=== PATIENT | female | born 1955 | race African-American/Black ===

== ENCOUNTER → 2017-06-28 | Outpatient (CLI) | payer MEDICAID ==
[~2017-06-28] VITALS: Ht 157.5 cm; Wt 60.3 kg
[~2017-06-28] MED LIST: ACET-1304 PO; ADENOSINE 51 MG in GIVE UN-DILUTED 0 ML IV ONE; ADENOSINE 90 MG/30 ML INJ IV ONE; AMOX500T3 PO; ANAG0.5C PO; ASPI81CH43 GT; ATOR40TA52 PO; BENA20TA14 PO; CHOL200031 PO; DOXA4TAB40 PO; HYDR500C PO; METF-370 PO; RANI150C11 PO
== END | disposition home or self-care (01) ==
LOC: Rad HDHVI 12:52
PROVIDERS: ATTEND Internal Medicine Cardiovascular Disease
DX: I20.9 Angina pectoris, unspecified (principal); I34.0 Nonrheumatic mitral (valve) insufficiency; R07.9 Chest pain, unspecified; R06.02 Shortness of breath; R42 Dizziness and giddiness
CPT/HCPCS: 78452; 93005; 93306; 96374; 96375; A9500

== ENCOUNTER → 2017-07-24 | Outpatient (CLI) | payer MEDICAID ==
[~2017-07-24] MED LIST changes: -ADENOSINE 51 MG in GIVE UN-DILUTED 0 ML IV ONE; -ADENOSINE 90 MG/30 ML INJ IV ONE
[2017-07-24 08:30] VITALS: BP 102/72
[2017-07-24 09:15] VITALS: BP 112/72
[2017-07-24 12:08] LABS: Eosinophils # (auto) 0.2 uL; Hemoglobin 12.9 g/dL (12.2-16.2); Mean Corpuscular Volume 97.8 fL (80.0-100.0); Neutrophils # (auto) 2.9 uL; Red Cell Distribution Width 15.9 % (11.8-14.3)
[2017-07-24 12:12] LABS: Basophils # (auto) 0 uL; Hematocrit 38.8 % (36.0-46.0); Lymphocytes # (auto) 1.2 uL; Mean Corpuscular Hemoglobin 32.5 pg (28.0-32.0); Mean Corpuscular Hgb Conc. 33.2 g/dL (32.0-36.0); Monocytes # (auto) 0.4 uL; Monocytes % (auto) 7.7 % (0.0-12.0); Neutrophils % (auto) 61.3 % (37.0-80.0); Nucleated Red Blood Cells % 0.2 %; Platelet Count (auto) 485 10^3/uL (140-450); Red Blood Cells 3.97 10^6/uL (4.0-5.20); White Blood Cell 4.7 10^3/uL (4.4-10.8)
[2017-07-24 12:22] LABS: INR 0.92 (0.9-1.15)
[2017-07-24 12:35] LABS: BUN/Creatinine Ratio 28.9; Calcium 8.9 mg/dL (8.5-10.1); Potassium 3.5 mmol/L (3.5-5.1)
== END | disposition home or self-care (01) ==
LOC: Rad HDHVI 08:19
PROVIDERS: ATTEND Internal Medicine Cardiovascular Disease
DX: Z01.818 Encounter for other preprocedural examination (principal); D64.9 Anemia, unspecified; I10 Essential (primary) hypertension; R79.1 Abnormal coagulation profile
CPT/HCPCS: 36415; 71046; 80048; 82962; 85025; 85610; 85730; 93005; G0463

== ENCOUNTER 2017-07-27 09:32 | Day surgery (SDC) | payer MEDICAID ==
[2017-07-27] MEDS ORDERED: IOHEXOL 350 MG/ML 100ML IJ ONE (12:31)
[2017-07-27] MEDS ORDERED: LIDOCAINE 2%HCL (LOCAL ANESTH.) INJ 20ML MDV ONE ×2 (12:32→12:40)
[2017-07-27] MEDS ORDERED: fentaNYL CITRATE 100 MCG/2 ML VL ONE (12:35)
[2017-07-27] MEDS ORDERED: ANGIOMAX 250 MG VIAL IV ONE (12:35)
[2017-07-27] MEDS ORDERED: MIDAZOLAM HCL 1MG/1ML-2 ML VIAL ONE (12:35)
[2017-07-27] MEDS ORDERED: SODIUM CHL 0.9% 0 ML ONE (12:35)
[2017-09-18] MEDS ORDERED: BENA20TA14 PO (19:03)
[2017-09-18] MEDS ORDERED: METF-370 PO (19:03)
[2017-09-18] MEDS ORDERED: ANAG0.5C PO (19:03)
[2017-09-18] MEDS ORDERED: HYDR500C PO (19:03)
[2017-09-18] MEDS ORDERED: ACET-1304 PO (19:03)
[2017-09-18] MEDS ORDERED: ATOR40TA52 PO (19:03)
[2017-09-18] MEDS ORDERED: RANI150C11 PO (19:03)
[2017-09-18] MEDS ORDERED: ASPI81CH43 GT (19:03)
[2017-09-18] MEDS ORDERED: CHOL200031 PO (19:03)
[2017-09-18] MEDS ORDERED: AMOX500T3 PO (19:03)
[2017-09-18] MEDS ORDERED: DOXA4TAB40 PO (19:03)
[2017-09-20] MEDS ORDERED: HYDR-4683 PO (13:56)
== END 2017-07-27 15:40 | disposition home or self-care (01) ==
LOC: CATH 09:32
PROVIDERS: ATTEND Internal Medicine Cardiovascular Disease
DX: I11.0 Hypertensive heart disease with heart failure (principal); I10 Essential (primary) hypertension
CPT/HCPCS: 93460; C1760; C1894; J1644; J3010; J7030; Q9967; 99152; J2250

== ENCOUNTER 2018-01-05 12:08 | Inpatient (IN) | payer MEDICAID ==
[~2018-01-05] VITALS: Ht 165.1 cm; Wt 57.0 kg
[~2018-01-05 12:08] MED LIST changes: +HYDR-4683 PO
[2018-01-05 13:49] LABS: Basophils # (auto) 0 uL; Eosinophils # (auto) 0.1 uL; Lymphocytes # (auto) 1.4 uL; Mean Corpuscular Volume 100.8 fL (80.0-100.0); Monocytes # (auto) 0.3 uL; Red Cell Distribution Width 16.9 % (11.8-14.3); White Blood Cell 3.9 10^3/uL (4.4-10.8)
[2018-01-05 13:51] LABS: Basophils % (auto) 0.5 % (0.0-2.0); Eosinophils % (auto) 3.2 % (0.0-7.0); Hematocrit 39.2 % (36.0-46.0); Hemoglobin 12.8 g/dL (12.2-16.2); Lymphocytes % (auto) 35.7 % (10.0-50.0); Mean Corpuscular Hemoglobin 32.8 pg (28.0-32.0); Mean Corpuscular Hgb Conc. 32.6 g/dL (32.0-36.0); Monocytes % (auto) 8.8 % (0.0-12.0); Neutrophils % (auto) 51.8 % (37.0-80.0); Platelet Count (auto) 430 10^3/uL (140-450); Red Blood Cells 3.89 10^6/uL (4.0-5.20)
[2018-01-05 14:10] LABS: Albumin 4.2 g/dL (3.4-5.0); Anion Gap 7 (5-15); Blood Urea Nitrogen 19 mg/dL (7-18); Calcium 8.9 mg/dL (8.5-10.1); Carbon Dioxide 26 mmol/L (21-32); Chloride 110 mmol/L (98-107); Glucose 82 mg/dL (74-106); Magnesium 2.3 mg/dL (1.6-2.6); Potassium 3.3 mmol/L (3.5-5.1); Sodium 143 mmol/L (136-145)
[2018-01-05 14:12] LABS: Alanine Aminotransferase 21 U/L (13-56); Aspartate Aminotransferase 22 U/L (15-37); BUN/Creatinine Ratio 22.6; GFR African American 89 mL/min; GFR Non-African American 74 mL/min
[2018-01-05 14:17] LABS: Alkaline Phosphatase 57 U/L (45-117); Bilirubin, Total 0.5 mg/dL (0.2-1.0); Total Protein 7.8 g/dL (6.4-8.2)
[2018-01-05 14:23] LABS: Urine Bacteria NONE SEEN /hpf (None Seen); Urine Blood Negative /uL (Negative); Urine Mucus FEW (None Seen); Urine Specific Gravity 1.027 (1.001-1.035); Urine WBC 2 /hpf (0 - 5)
[2018-01-05] MEDS ORDERED: ALBUTEROL SULF 2.5 MG/0.5ML(0.5%) NEB SOLN NEB PRN (17:00)
[2018-01-05] MEDS ORDERED: LORazepam 0.5 MG TAB PO PRN (17:00)
[2018-01-05] MEDS ORDERED: LACTULOSE 20Gm/30ML SOLN PO PRN (17:00)
[2018-01-05] MEDS ORDERED: NITROGLYCERIN 0.4 MG SL TAB SL PRN (17:00)
[2018-01-05] MEDS ORDERED: HYDROcodone-ACET 5/325MG TAB PO PRN (17:00)
[2018-01-05] MEDS ORDERED: MORPHINE SULF INJ 2 MG/ML SYRINGE 1ML IV PRN ×2 (17:00)
[2018-01-05] MEDS ORDERED: ACETAMINOPHEN 500 MG TAB PO PRN (17:00)
[2018-01-05] MEDS ORDERED: NITROFURANTOIN (MONO) 100 mg CAP PO ONE (17:00)
[2018-01-05] MEDS ORDERED: PROMETHAZINE HCL 25 MG/ML 1ML IV PRN (17:00)
[2018-01-05] MEDS ORDERED: GABA-339 PO ×2 (17:30→22:55)
[2018-01-05] MEDS ORDERED: GABA600T PO (17:30)
[2018-01-05] MEDS ORDERED: METOPROLOL TARTRATE 25 MG TAB PO ONE (17:30)
[2018-01-05] MEDS ORDERED: CHOL200010 PO (17:34)
[2018-01-05] MEDS ORDERED: ASPI-231 PO (17:34)
[2018-01-05] MEDS ORDERED: [UNRECOGNIZED DRUG - CODE] PO (17:34)
[2018-01-05] MEDS ORDERED: HYDR500C PO (17:34)
[2018-01-05] MEDS ORDERED: RANI1TAB6 PO (17:34)
[2018-01-05] MEDS ORDERED: DOXA4TAB40 PO (17:34)
[2018-01-05] MEDS ORDERED: BENA40TA7 PO (17:34)
[2018-01-05] MEDS ORDERED: VALA500T33 PO (17:34)
[2018-01-05] MEDS ORDERED: ANAG0.5C6 PO (17:37)
[2018-01-05] MEDS ORDERED: HYDR12.56 PO (17:37)
[2018-01-05] MEDS ORDERED: ATOR40TA52 PO (17:37)
[2018-01-05] MEDS ORDERED: TRAM50TA2 PO (17:37)
[2018-01-05] MEDS ORDERED: METH-532 PO (17:37)
[2018-01-05 17:56] LABS: Alcohol, Urine < 3.0 mg/dL (0-5); Amphetamine Screen, Urine NEGATIVE (NEGATIVE); Barbiturate Scree,Urine NEGATIVE (NEGATIVE); Benzodiazephine Screen, Urine NEGATIVE (NEGATIVE); Cannabinoid Screen, Urine POSITIVE (NEGATIVE); Cocaine Screen, Urine NEGATIVE (NEGATIVE); Opiate Scree,Urine NEGATIVE (NEGATIVE); Phencyclidine Screen, Urine NEGATIVE (NEGATIVE)
[2018-01-05] MEDS: ALBUTEROL SULF 2.5 MG/0.5ML(0.5%) NEB SOLN NEB SCH (18:10)
[2018-01-05] MEDS: IPRATROPIUM BROM 0.5 MG/2.5ML INH SOL NEB SCH (18:10)
[2018-01-05] MEDS: SODIUM CHLORIDE 0.9% 1,000 ML IV SCH (18:35)
[2018-01-05] MEDS: cefTRIAXone 1GM/10ml IVPUSH 10 ML IV SCH (18:35)
[2018-01-05 20:28] VITALS: BP 141/72
[2018-01-05] MEDS: DOXAZOSIN MESYL 2 MG TAB PO SCH (21:18)
[2018-01-05] MEDS: [UNRECOGNIZED DRUG - OTHER] PO SCH (21:18)
[2018-01-05] MEDS: ATORVASTATIN 20 MG TAB PO SCH (21:19)
[2018-01-05] MEDS: TEMAZEPAM 15 MG CAP PO PRN (21:25)
[2018-01-05 21:52] VITALS: BP 141/72
[2018-01-05] MEDS ORDERED: BECL80AE11 IN (22:55)
[2018-01-05] MEDS ORDERED: ALBUAER3 IN (22:55)
[2018-01-06] MEDS: ALBUTEROL SULF 2.5 MG/0.5ML(0.5%) NEB SOLN NEB SCH ×5 (00:23→22:54)
[2018-01-06] MEDS: IPRATROPIUM BROM 0.5 MG/2.5ML INH SOL NEB SCH ×5 (00:23→22:54)
[2018-01-06 02:27] VITALS: BP 141/72
[2018-01-06 05:36] VITALS: BP 119/69
[2018-01-06 06:06] LABS: Basophils # (auto) 0 uL; Basophils % (auto) 1.5 % (0.0-2.0); Eosinophils # (auto) 0.3 uL; Eosinophils % (auto) 8.2 % (0.0-7.0); Hematocrit 34.2 % (36.0-46.0); Hemoglobin 11.4 g/dL (12.2-16.2); Lymphocytes # (auto) 1.2 uL; Lymphocytes % (auto) 35.7 % (10.0-50.0); Mean Corpuscular Hemoglobin 33.5 pg (28.0-32.0); Mean Corpuscular Hgb Conc. 33.2 g/dL (32.0-36.0); Mean Corpuscular Volume 100.7 fL (80.0-100.0); Monocytes # (auto) 0.4 uL; Monocytes % (auto) 11.5 % (0.0-12.0); Neutrophils # (auto) 1.4 uL; Neutrophils % (auto) 43.1 % (37.0-80.0); Nucleated Red Blood Cells % 0.1 %; Platelet Count (auto) 357 10^3/uL (140-450); Red Cell Distribution Width 16.5 % (11.8-14.3); White Blood Cell 3.3 10^3/uL (4.4-10.8)
[2018-01-06 06:25] LABS: Albumin 3.3 g/dL (3.4-5.0); Bilirubin, Total 0.4 mg/dL (0.2-1.0); Calcium 8.6 mg/dL (8.5-10.1); Potassium 3.6 mmol/L (3.5-5.1); Total Protein 6.3 g/dL (6.4-8.2)
[2018-01-06] MEDS: SODIUM CHLORIDE 0.9% 1,000 ML IV SCH ×2 (06:50→21:30)
[2018-01-06 09:07] VITALS: BP 128/78
[2018-01-06] MEDS: PANTOPRAZOLE 40 MG TAB PO SCH (09:56)
[2018-01-06] MEDS: ASPirin 81 mg TAB PO SCH (09:56)
[2018-01-06] MEDS: METOPROLOL TARTRATE 25 MG TAB PO SCH ×3 (09:57→21:32)
[2018-01-06] MEDS: ENOXAPARIN SOD 40 MG/0.4 ML SYRINGE SC SCH (09:58)
[2018-01-06] MEDS: BENAZEPRIL HCL 10 MG TAB PO SCH (09:58)
[2018-01-06] MEDS: [UNRECOGNIZED DRUG - OTHER] PO SCH ×2 (10:00→21:29)
[2018-01-06] MEDS ORDERED: PATIENTS OWN MEDICATION (Benazepril Hcl 20 MG) PO SCH (10:00)
[2018-01-06] MEDS: NITROGLYCERIN 0.2MG/HR TOPICAL PATCH TD SCH (12:34)
[2018-01-06 13:26] VITALS: BP 143/77
[2018-01-06 17:00] VITALS: BP 125/69
[2018-01-06] MEDS: cefTRIAXone 1GM/10ml IVPUSH 10 ML IV SCH (17:50)
[2018-01-06] MEDS: ATORVASTATIN 20 MG TAB PO SCH (21:27)
[2018-01-06] MEDS: TEMAZEPAM 15 MG CAP PO PRN (21:28)
[2018-01-06] MEDS: DOXAZOSIN MESYL 2 MG TAB PO SCH (21:29)
[2018-01-06 21:50] VITALS: BP 100/70
[2018-01-07] MEDS ORDERED: PNEUMOCOCCAL VACC POLYS 25 MCG/0.5 ML VIAL IM ONE (00:30)
[2018-01-07 04:57] VITALS: BP 133/77
[2018-01-07 06:40] LABS: Basophils # (auto) 0 uL; Eosinophils # (auto) 0.3 uL; Eosinophils % (auto) 6.8 % (0.0-7.0); Lymphocytes # (auto) 1.3 uL; Mean Corpuscular Volume 102.3 fL (80.0-100.0); Monocytes # (auto) 0.4 uL; White Blood Cell 4.2 10^3/uL (4.4-10.8)
[2018-01-07 06:42] LABS: Basophils % (auto) 1.1 % (0.0-2.0); Hematocrit 36.1 % (36.0-46.0); Hemoglobin 11.8 g/dL (12.2-16.2); Lymphocytes % (auto) 30.3 % (10.0-50.0); Mean Corpuscular Hemoglobin 33.5 pg (28.0-32.0); Mean Corpuscular Hgb Conc. 32.7 g/dL (32.0-36.0); Monocytes % (auto) 8.5 % (0.0-12.0); Neutrophils # (auto) 2.3 uL; Neutrophils % (auto) 53.3 % (37.0-80.0); Nucleated Red Blood Cells % 0.1 %; Platelet Count (auto) 356 10^3/uL (140-450); Red Blood Cells 3.53 10^6/uL (4.0-5.20); Red Cell Distribution Width 16.4 % (11.8-14.3)
[2018-01-07] MEDS: IPRATROPIUM BROM 0.5 MG/2.5ML INH SOL NEB SCH ×3 (06:43→19:31)
[2018-01-07] MEDS: ALBUTEROL SULF 2.5 MG/0.5ML(0.5%) NEB SOLN NEB SCH ×3 (06:44→19:31)
[2018-01-07 06:57] LABS: Calcium 8.5 mg/dL (8.5-10.1); Potassium 3.7 mmol/L (3.5-5.1)
[2018-01-07 07:04] LABS: BUN/Creatinine Ratio 15.3
[2018-01-07] MEDS: SODIUM CHLORIDE 0.9% 1,000 ML IV SCH ×2 (09:00→22:17)
[2018-01-07 09:10] VITALS: BP 148/82
[2018-01-07] MEDS: [UNRECOGNIZED DRUG - OTHER] PO SCH ×2 (10:08→21:50)
[2018-01-07] MEDS: NITROGLYCERIN 0.2MG/HR TOPICAL PATCH TD SCH (10:10)
[2018-01-07] MEDS: ENOXAPARIN SOD 40 MG/0.4 ML SYRINGE SC SCH (10:11)
[2018-01-07] MEDS: PANTOPRAZOLE 40 MG TAB PO SCH (10:11)
[2018-01-07] MEDS: ASPirin 81 mg TAB PO SCH (10:12)
[2018-01-07] MEDS: BENAZEPRIL HCL 10 MG TAB PO SCH (10:12)
[2018-01-07 13:00] VITALS: BP_SYST 136; BP_SYST 137; BP_DIAS 81; BP_DIAS 86
[2018-01-07 17:17] VITALS: BP 129/78
[2018-01-07 20:00] VITALS: BP 151/82
[2018-01-07] MEDS: TEMAZEPAM 15 MG CAP PO PRN (21:48)
[2018-01-07] MEDS: ATORVASTATIN 20 MG TAB PO SCH (21:48)
[2018-01-07] MEDS: DOXAZOSIN MESYL 2 MG TAB PO SCH (21:48)
[2018-01-07] MEDS: METOPROLOL TARTRATE 25 MG TAB PO SCH (21:49)
[2018-01-07 22:00] VITALS: BP 151/82
[2018-01-08] MEDS: IPRATROPIUM BROM 0.5 MG/2.5ML INH SOL NEB SCH ×3 (01:01→11:39)
[2018-01-08] MEDS: ALBUTEROL SULF 2.5 MG/0.5ML(0.5%) NEB SOLN NEB SCH ×3 (01:02→11:39)
[2018-01-08 05:00] VITALS: BP 131/76
[2018-01-08 05:47] LABS: Basophils # (auto) 0 uL; Basophils % (auto) 0.9 % (0.0-2.0); Eosinophils # (auto) 0.3 uL; Eosinophils % (auto) 6.4 % (0.0-7.0); Lymphocytes # (auto) 1.3 uL; Monocytes # (auto) 0.4 uL; Neutrophils # (auto) 2.3 uL; White Blood Cell 4.3 10^3/uL (4.4-10.8)
[2018-01-08 05:50] LABS: Hematocrit 30.8 % (36.0-46.0); Hemoglobin 10.6 g/dL (12.2-16.2); Lymphocytes % (auto) 31.5 % (10.0-50.0); Mean Corpuscular Hemoglobin 35.1 pg (28.0-32.0); Mean Corpuscular Hgb Conc. 34.4 g/dL (32.0-36.0); Mean Corpuscular Volume 101.9 fL (80.0-100.0); Monocytes % (auto) 8.3 % (0.0-12.0); Neutrophils % (auto) 52.9 % (37.0-80.0); Nucleated Red Blood Cells % 0.1 %; Platelet Count (auto) 317 10^3/uL (140-450); Red Blood Cells 3.02 10^6/uL (4.0-5.20)
[2018-01-08 06:15] LABS: BUN/Creatinine Ratio 15.5; Calcium 8.3 mg/dL (8.5-10.1); Potassium 3.5 mmol/L (3.5-5.1)
[2018-01-08 09:10] VITALS: BP 143/91
[2018-01-08] MEDS: [UNRECOGNIZED DRUG - OTHER] PO SCH (10:00)
[2018-01-08] MEDS: ASPirin 81 mg TAB PO SCH (10:00)
[2018-01-08] MEDS: METOPROLOL TARTRATE 25 MG TAB PO SCH (10:00)
[2018-01-08] MEDS: ENOXAPARIN SOD 40 MG/0.4 ML SYRINGE SC SCH (10:00)
[2018-01-08] MEDS: PANTOPRAZOLE 40 MG TAB PO SCH (10:00)
[2018-01-08] MEDS: BENAZEPRIL HCL 10 MG TAB PO SCH (11:00)
[2018-01-08] MEDS: NITROGLYCERIN 0.2MG/HR TOPICAL PATCH TD SCH (11:01)
[2018-01-08 13:00] VITALS: BP 157/99
== END 2018-01-08 14:50 | disposition home or self-care (01) | DRG 144 ==
LOC: EDBD 12:08 → ER 12:08 → TELE 12:09 → TELE-WESTW 20:17
PROVIDERS: ADMIT Internal Medicine; ATTEND Internal Medicine
DX: R91.1 Solitary pulmonary nodule (principal); G62.9 Polyneuropathy, unspecified; I10 Essential (primary) hypertension; E78.5 Hyperlipidemia, unspecified; I35.0 Nonrheumatic aortic (valve) stenosis; J45.909 Unspecified asthma, uncomplicated; M06.9 Rheumatoid arthritis, unspecified; Z85.3 Personal history of malignant neoplasm of breast; Z86.73 Personal history of transient ischemic attack (TIA), and cerebral infarction without residual deficits; Z90.49 Acquired absence of other specified parts of digestive tract; Z23 Encounter for immunization; Z90.710 Acquired absence of both cervix and uterus
CPT/HCPCS: 36415; 71045; 71250; 80048; 80053; 80061; 80307; 81001; 82550; 83735; 84484; 85025; 85379; 85652; 86141; 93005; 93306; 94640; 96374; 96375; J0696